=== PATIENT | female | born 1940 | race Caucasian/White ===

== ENCOUNTER 2024-12-05 11:26 | Emergency (ER) | payer MEDICARE, SELFPAY ==
[2024-12-05 11:46] VITALS: BP 128/62; PULSE 70; RESP 18; TEMP 36.4; O2SAT 98; BMI 31.0
--- NOTE | 2024-12-05 11:46 | ED.GENADULT ---
HPI - General Adult General Chief complaint: Anxiety Stated complaint: anxiety attack Time Seen by Provider: 12/05/24 12:09 Source: patient Mode of arrival: ambulatory Limitations: no limitations History of Present Illness ED Provider: CHAYO Cosby HPI narrative: This is an 83-year-old female history of anxiety presenting with significant anxiety since this morning she tells me she woke up feeling this way. She reports that yesterday she had a very emotionally filled day she went to a for her daughter's [id number], she says that they were not very close however her family was there and her son who she has not seen in about a month or 2 was there with emphysema and he looked very worn out. She is also tearful and tells me her daughter was recently diagnosed with cancer. She tells me she has 5 kids and she feels like they are all very sick, she does not want them to be sick. She is saddened by all other medical diagnoses. She denies medical complaints such as chest pain, shortness of breath, nausea, vomiting, abdominal pain, headache, vision changes, dizziness, palpitations, fevers, chills. She reports she used to take p.r.n. lorazepam however no longer taking she ran out of her script. Not suicidal not homicidal just anxious and depressed Related Data Previous Rx's ?Medication ?Instructions ?Recorded lorazepam 1 mg tablet (Ativan) 1 mg PO BID PRN anxiety 7 days #14 12/05/24 tabs Allergies Allergy/AdvReac Type Severity Reaction Status Date / Time Sulfa (Sulfonamide Allergy Intermediate RASH Verified 12/05/24 11:50 Antibiotics) (SULFA (SULFONAMIDE ANTIBIOTICS)) Pt states no known food Allergy Unknown Unknown Uncoded 12/05/24 11:50 allerg Review of Systems Review of Systems: Yes all other systems are reviewed and are negative PMFSH Past Medical History Attestation statement: The following information was validated with the patient. Source: old records reviewed and nursing notes reviewed Social History Social History Smoked in Last 30 Days: No Use of substances other than those prescribed or required for medical reasons: No Advance Directives: No Advance Directives Information Provided: No Do you have a plan to hurt others: No Plan Physical Exam ED Exam Exam: Appearance: Alert.? Oriented X3.? No acute distress.?+ anxious and tearful Head: Normocephalic, atraumatic, no step-offs or deformities Eyes: Pupils equal, round and reactive to light.? ENT: Pharynx normal.? Neck: Normal inspection.? Neck supple.? CVS: Normal heart rate and rhythm.? Pulses normal.? Respiratory: No respiratory distress.? Breath sounds normal.? Abdomen: Soft and nontender.? Skin: Skin warm and dry.? Normal skin color.? Normal skin turgor.? Extremities: No lower extremity edema.? No calf ttp. 5/5 strength to bilateral upper and lower extremities Neuro: Oriented X 3.? No motor deficit.? No sensory deficit. CN 2-12 intact Vital Signs: Vital Signs - 24 hr 12/05/24 11:46 12/05/24 12:54 12/05/24 16:18 Temperature 97.5 F 98 F Pulse Rate 70 113 H 89 Respiratory Rate 18 12 12 Blood Pressure 128/62 139/64 133/60 Pulse Oximetry 98 97 97 Oxygen Delivery Method Room Air Room Air Room Air BMI result Body Mass Index 31.0 vss Course Course Course Narrative: Medical screening exam performed. Please refer to detailed history, exam, evaluation, and management by primary provider. Reporting anxiety, forgetful. Lives at home with daughter. No trauma. JS Reevaluation(s) Reevaluation #1: Patient's CBC unremarkable. Chemistry no acute findings. UA without infection. EKG nondiagnostic for her chief complaint. Troponin added. Patient not complaining of chest pain or shortness of breath. Feeling much better after Ativan. She was seen by the care team, who recommends patient to follow up with outpatient providers which they will help set up for her. Patient feels comfortable with this plan. Time: 14:14 Medications Administered Discontinued Medications Generic Name Dose Route Start Last Admin Trade Name Freq PRN Reason Stop Dose Admin Lorazepam 1 mg 12/05/24 12:20 12/05/24 12:30 Lorazepam 1 Mg Tablet PO 12/05/24 12:21 1 mg ONCE ONE Administration Ondansetron HCl 4 mg 12/05/24 13:16 12/05/24 13:30 Ondansetron Odt 4 Mg Tab.Rapdis TRANSLINGU 12/05/24 13:17 4 mg ONCE ONE Administration Medical Decision Making Medical Decision Making [facility] Narrative: 1241 83-year-old female presents with anxiety. No medical complaints. Physical exam anxious appearing female otherwise unremarkable. History and physical exam concerning for anxiety, depression and panic attack. Not suicidal not homicidal. Low suspicion for electrolyte abnormalities. Will rule out UTI. Plan labs, urine. Will give Ativan Differential Diagnosis Differential Diagnoses: The differential diagnosis associated with the presentation includes (History and physical exam concerning for anxiety, depression and panic attack. Not suicidal not homicidal. Low suspicion for electrolyte abnormalities. Will rule out UTI.) Admission/Observation Consideration of admission/observation: Escalation of care including admission/observation considered Lab Data [facility] Lab Attestation statement: I reviewed the patient's lab results. 12/05/24 11:57 12/05/24 11:57 Labs: Lab Results 12/05/24 12/05/24 Range/Units 11:57 12:31 WBC 9.0 (4.8-10.8) X10*3/uL RBC 4.33 (4.20-5.50) X10*6/uL Hgb 13.3 (12.0-16.0) g/dl Hct 40.0 (37.0-47.0) % MCV 92.4 (80.0-98.0) fL MCH 30.7 (27.0-33.0) pg MCHC 33.3 (31.0-35.0) g/dl RDW 13.4 (11.0-16.0) % Plt Count 219 (160-400) X10*3/uL MPV 9.3 L (9.4-12.3) fL Immature Gran % (Auto) 0.2 (0.0-0.4) % Neut % (Auto) 79.6 H (45-73) % Lymph % (Auto) 11.4 L (20-40) % Sunflower % (Auto) 7.3 (2-11) % Eos % (Auto) 0.8 (0-4) % Baso % (Auto) 0.7 (0-2) % Lymph # (Auto) 1.0 L (1.2-4.9) X10*3/uL Sunflower # (Auto) 0.7 (0.1-1.2) X10*3/uL Eos # (Auto) 0.1 (0.0-0.4) X10*3/uL Baso # (Auto) 0.1 (0.0-0.2) X10*3/uL Abs Immat Gran (auto) 0.02 (0.00-0.03) X10*3/uL Absolute Neuts (auto) 7.2 (2.0-8.3) x10*3/uL Absolute Nucleated RBC 0.000 (0.0-0.012) X10*3/uL Nucleated RBC % (auto) 0.0 (0.0-0.2) /100WBC Sodium 141 (135-145) mmol/L Potassium 4.8 (3.3-5.1) mmol/L Chloride 107 (96-108) mmol/L Carbon Dioxide 27 (22-29) mmol/L Anion Gap 12 (12-20) BUN 19 H (9-16) mg/dL Creatinine 0.83 (0.5-1.4) mg/dL Estim Creat Clear Calc 50.3 Estimated GFR > 60 Random Glucose 104 (60-115) mg/dL Calcium 10.0 (8.4-10.2) mg/dL Total Bilirubin 0.4 (0.0-1.0) mg/dL AST 25 (5-31) U/L ALT 15 (0-31) U/L Alkaline Phosphatase 55 (39-117) U/L Troponin I High Sens 4.9 (<3.5-17.0) ng/L Total Protein 6.7 (6.5-8.0) g/dL Albumin 4.3 (3.5-5.0) g/dL Urine Color Yellow Urine Appearance Clear Urine pH 7.5 (5.0-9.0) Ur Specific [place] 1.015 (1.005-1.025) Urine Protein Negative (Neg-Trace) mg/dL Urine Glucose (UA) Negative (Negative) mg/dL Urine Ketones Trace (Negative) mg/dL Urine Blood Negative (Negative) Urine Nitrite Negative (Negative) Ur Leukocyte Esterase Trace H (Negative) Urine RBC 0-2 (0-2) /HPF Urine WBC 0-5 (0-5) /HPF Ur Squamous Epith Cells 3-5 (0-2) /HPF Urine Bacteria None Seen (None Seen) Hyaline Casts 0-2 (0-2) /LPF Independent Interpretation I performed an independent interpretation of an: EKG (Nondiagnostic for chief complaint) Radiology Impression Discussion of test interpretation with radiology: I have reviewed the radiologist's reading. Independent Historian Clinical information obtained from an independent historian. History obtained from or confirmed by: Other Discharge Plan Discharge Clinical Impression: Acute anxiety Patient Disposition: Home, Self-Care Instructions: Anxiety (ED) Additional Instructions: Take your medications as prescribed. If you were prescribed antibiotics today, it is important that you take your medication to their entirety, do not skip any doses, do not finish them early. Follow-up with your primary care provider this week. Return to the emergency department with new or worsening symptoms. Such as fevers, chills, chest pain, shortness of breath, nausea, vomiting, dizziness, headache, vision changes, lethargy In case of emergency call 911 A benzodiazepine has been sent to your pharmacy please take this as prescribed. Do not take more than the prescribed dose. Benzodiazepine medications can cause addiction. Please do not mix them with alcohol, benzodiazepines or opiates. Do not take them while driving or operating machinery. Do not take them with any other narcotics. Do not share them with friends or family. They can cause constipation. Take them only for severe pain. Prescriptions: New lorazepam [Ativan] 1 mg tablet 1 mg PO BID PRN (Reason: anxiety) 7 Days Qty: 14 0RF Rx Instructions: Partial fill upon required Referrals: Sean Prasad MD [Primary Care Provider, Internal Medicine] Interventions: ED Discharge Assessment Last Done: 12/05/24 16:18 Discharge Date/Time: 12/05/24 16:18 Print Language: Gambian
--- OUTSIDE RECORDS SUMMARY | 2024-12-05 12:10 | XMS_ITS | Encounter Summary ---
Author Organization [facility] Address [address] [place] [address] Care Team Providers Care Claims Support Specialist Name Role Phone Sean Prasad MD Primary Care Provider [phone] Encounter Details Date Type Department Care Team (Late st Contact Info) Description 05/29/[address] [facility] - Main Lab [address] [facility] [place] [id number] Eliana Arroyo, CHAYO [address] [facility] [address] [place] [address] Dysuria Social History Tobacco Use Types Packs/Day Years Used Date Smoking Tobacco: Former Cigarettes Passive Smoke Exposure: Past Smokeless Tobacco: Never Alcohol Use Standard Drinks/Week Comments Not Asked 0 (1 standard drink = 0.6 oz pur e alcohol) BUNNY Comments Unknown Sex and Gender Information Value Date Recorded Sex Assigned at Female 02/24/2024 6:06 AM EST Legal Sex Female 6:34 AM EST Gender Identity Female 02/24/2024 6:06 AM EST Sexual Orientation Straight 02/24/2024 6: 06 AM EST documented as of this encounter Plan of Treatment Not on file documented as of this encounter Procedures Procedure Name Priority Date/Time Associated Diagnosis Comments BACTERIAL IDENTIFICATION AND SUSCEPTIBILITY, AEROBIC Routine 05/28/2024 12:00 AM EDT Dysuria documented in this encounter Results * (ABNORMAL) Bacterial identification and susceptibility, aerobic (05/28/2024 12:00 AM EDT) Culture, Bacterial ID and Sensitivity Klebsiella pneumoniae ssp pneumoniae(A) GILDA 05/30/2024 10:[address] [facility] Comment: This is an edited result. Previous organism was Gram negative bacilli on 05/29/2024 at 1109 EDT. Other Urine specimen from urethra / Unknown 05/28/2024 05/29/2024 10:31 AM EDT Narrative Organism Antibiotic Method Susceptibility Klebsiella pneumoniae ssp pneumoniae Amoxicillin/Clavulanate GILDA 8 ug/ml: Susceptible Klebsiella pneumoniae ssp pneumoniae Ampicillin/Sulbactam GILDA 4 ug/ml: Susceptible Klebsiella pneumoniae ssp pneumoniae Piperacillin/Tazobactam GILDA <=4 ug/ml: Susceptible Klebsiella pneumoniae ssp pneumoniae Cefazolin (Urine) GILDA 4 ug/ml: Susceptible Klebsiella pneumoniae ssp pneumoniae Cefoxitin GILDA <=4 ug/ml: Susceptible Klebsiella pneumoniae ssp pneumoniae Ceftazidime GILDA <=0.5 ug/ml: Susceptible Klebsiella pneumoniae ssp pneumoniae Ceftriaxone GILDA <=0.25 ug/ml: Susceptible Klebsiella pneumoniae ssp pneumoniae Cefepime GILDA <=0.12 ug/ml: Susceptible Klebsiella pneumoniae ssp pneumoniae Meropenem GILDA <=0.25 ug/ml: Susceptible Klebsiella pneumoniae ssp pneumoniae Amikacin GILDA <=1 ug/ml: Susceptible Klebsiella pneumoniae ssp pneumoniae Gentamicin GILDA <=1 ug/ml: Susceptible Klebsiella pneumoniae ssp pneumoniae Ciprofloxacin GILDA <=0.06 ug/ml: Susceptible Klebsiella pneumoniae ssp pneumoniae Levofloxacin GILDA 1 ug/ml: Intermediate Klebsiella pneumoniae ssp pneumoniae Nitrofurantoin GILDA 256 ug/ml: Resistant Klebsiella pneumoniae ssp pneumoniae Trimethoprim/Sulfamethoxazo le GILDA <=20 ug/ml: Susceptible us Eliana [facility] MICROBIOLOGY - GENERAL ORDER WINDY Final Result [facility] [address] [place] [address], documented in this encounter Visit Diagnoses Diagnosis Dysuria documented in this encounter Care Teams Claims Support Specialist Relationship Specialty Start Date End Date Sean Prasad MD [address] PCP - General Internal Medicine 02/24/24 documented as of this encounter
--- OUTSIDE RECORDS SUMMARY | 2024-12-05 12:10 | XMS_ITS | Clinical Summary ---
Author Organization [facility] [place] [address] Phone Care Team Providers Care Chain Builder Loom Control Name Role Phone Sean Prasad MD Primary Care Provider [phone] Allergies Active Allergy Reactions Criticality Noted Date Comments Amoxicillin-Pot Clavulanate Nausea And Vomiting Low 02/17/2024 Sulfa (Sulfonamide Antibiotics) Rash High 02/01 Medications calcium carbonate-vitam in D3 1,000 mg-20 mcg (800 unit) tablet Take 1,000 mg by mouth 1 (one) time each day. 12/27/2021 Active LORazepam (ATIVAN) 0.5 mg tablet Take 1 tablet (0.5 mg total) by mouth every 6 (six) hours if needed. Max Daily Amount: 2 mg 09/07/2022 Active losartan (COZAAR) 100 mg tablet Take 1 tablet (100 mg total) by mouth. 12/27/2021 Active polyethylene glycol 3350 (MIRALAX ORAL) Take 17 g by mouth. 12/28/2021 Active simvastatin (ZOCOR) 20 mg tablet Take 1 tablet (20 mg total) by mouth. 12/27/2021 Active amLODIPine (NORVASC) 5 mg tablet Take by mouth 1 (one) time each day. Active nitrofurantoin (MACRODANTIN) 50 mg capsule Take 1 capsule (50 mg total) by mouth at bedtime. Active saccharomyces boulardii (FLORASTOR) 250 mg capsule Take 1 capsule (250 mg total) by mouth 1 (one) time each day. Active vit C/E/Zn/coppr/nabor tein/zeaxan (PRESERVISION AREDS-2 ORAL) Take 1 tablet by mouth 2 (two) times a day. Active PARoxetine (PAXIL) 10 mg tablet Take 1 tablet (10 mg total) by mouth 1 (one) time each day in the morning. Active Active Problems Problem Noted Date Diagnosed Date TIA (transient ischemic attack) 02/24/2024 HTN (hypertension) 02/23/2024 Surgical History Surgery Date Site/Laterality Comments KNEE ARTHROPLASTY Right CHOLECYSTECTOMY BLADDER SUSPENSION CARPAL TUNNEL RELEASE Right Medical History Medical History Date Comments Hypertension Hyperlipidemia HL (hearing loss) Dental disease PARTIAL UPPER Arthritis Joint pain Dizziness Stroke ([facility] V24, [facility] V28) TIA Social History Tobacco Use Types Packs/Day Years Used Date Smoking Tobacco: Former Cigarettes Passive Smoke Exposure: Past Smokeless Tobacco: Never Tobacco Cessation:Counseling Given: Not Answered Alcohol Use Standard Drinks/Week Comments Not Asked 0 (1 standard drink = 0.6 oz pur e alcohol) RARLEY Comments Unknown Sex and Gender Information Value Date Recorded Sex Assigned at Female 02/24/2024 6:06 AM EST Legal Sex Female 6:34 AM EST Gender Identity Female 02/24/2024 6:06 AM EST Sexual Orientation Straight 02/24/2024 6: 06 AM EST Obstetrics History Last Filed Vital Signs Vital Sign Reading Time Taken Comments Blood Pressure 108/65 02/24/2024 9:11 AM EST Pulse 77 02/24/2024 9:11 AM EST Temperature 36.4 C (97.5 F) 02/24/2024 9:11 AM EST Respiratory Rate 15 02/24/2024 9:02 AM EST Oxygen Saturation 96% 02/24/2024 9:11 AM EST Inhaled Oxygen Concentration - - Weight 79.4 kg (175 lb) 02/17/2024 11:00 AM EST Height 157.5 cm (5' 2 ) 02/17/2024 11:00 AM EST Body Mass Index 32.01 02/17/2024 11:00 AM EST Plan of Treatment Health Maintenance Due Date Last Done Comments DTaP,Tdap,and Td Vaccines (1 - Tdap) 12/24/1959 Pneumococcal Vaccine: 50+ Ye ars (1 of 1 - PCV) 12/24/1989 Zoster Vaccines (2 of 3) 12/16/2008 10/21/2008 RSV Immunization Adult Patie nts (1 - 1-dose 75+ series) 12/24/2014 Cholesterol Screening (Lipid Panel) 02/04/2022 Medicare Annual Wellness Visit 02/04/2022 Osteoporosis Screening (Bone Density Screening) 02/04/2022 Social Influencers of Health Screening 02/04/2022 Hypertension/CHF/CAD Annual BMP Blood Test 02/23/2024 Depression Screening 03/04/2024 COVID-19 Vaccine ( - 2023-2 5 season) 2024 Influenza Vaccine (#1) 2024 Falls Risk Assessment 02/23/2025 02/24/2024 HIB Vaccines Aged Out No longer eligi ble based on patient's age to complete this topic HPV Vaccines Aged Out No longer eligi ble based on patient's age to complete this topic Hepatitis A Vaccines Aged Out No long er eligible based on patient's age to complete this topic Hepatitis B Vaccines Aged Out No long er eligible based on patient's age to complete this topic IPV Vaccines Aged Out No longer eligi ble based on patient's age to complete this topic MMR Vaccines Aged Out No longer eligi ble based on patient's age to complete this topic Meningococcal ACWY Vaccine Aged Out N o longer eligible based on patient's age to complete this topic Meningococcal B Vaccine Aged Out No l onger eligible based on patient's age to complete this topic RSV Immunization Patients Un oliver 20 months Aged Out No longer eligible b ased on patient's age to complete this topic Varicella Vaccines Aged Out No longer eligible based on patient's age to complete this topic Medical Devices Implanted Type Area Brick Setter Device Identifier Shelf Expiration Date Model / Serial / Lot Joints Knee Joints Knee Right: Knee [employer] Tined Lead Kit Implanted:Qty: 1 on 02/24/2024 by Saskia Carmen MD at [facility] N/A: Sacrum [employer] 12/22/2026 1201 / [id number] / NA Axonics Neurostimulator F-15 Implanted:Qty: 1 on 02/24/2024 by Saskia Carmen MD at [facility] N/A: Sacrum [employer] 05/13/2024 [id number] / [id number] / NA Insurance MEDICARE [facility] [address] [place] [address] Care Teams Chain Builder Loom Control Relationship Specialty Start Date End Date Sean Prasad MD [address] [facility] [address] [place], [place] PCP - General Internal Medicine 02/24/24
[2024-12-05 12:13] LABS: MANUAL DIFF FLAG NO
--- NOTE | 2024-12-05 12:17 | PC.NURSE ---
Patient reporting went to a yesterday and saw her son who is sick with narcolepsy and emphysema. States this made her very anxious- daughter at bedside confirms. Patient state used to take Ativan but has not needed to take it for over a year. Took paxil 10 mg this am but states still feels anxious. Denies SI/HI, denies recent illness
[2024-12-05 12:21] LABS: Hematocrit 40.0 % (37.0-47.0); Hemoglobin 13.3 g/dl (12.0-16.0); Imm Gran Abs Auto 0.02 X10*3/uL (0.00-0.03); Imm Gran Pct Auto 0.2 % (0.0-0.4); Lymphocytes Absolute Auto 1.0 X10*3/uL (1.2-4.9); Mean Corpuscular HGB Conc 33.3 g/dl (31.0-35.0); Mean Corpuscular Hemoglobin 30.7 pg (27.0-33.0); Mean Corpuscular Volume 92.4 fL (80.0-98.0); NRBC Abs Auto 0.000 X10*3/uL (0.0-0.012); NRBC Pct Auto 0.0 /100WBC (0.0-0.2); Platelet Count 219 X10*3/uL (160-400); Red Blood Count 4.33 X10*6/uL (4.20-5.50); White Blood Count 9.0 X10*3/uL (4.8-10.8)
[2024-12-05 12:27] LABS: Alanine Aminotransferase 15 U/L (0-31); Albumin Level 4.3 g/dL (3.5-5.0); Alkaline Phosphatase 55 U/L (39-117); Anion Gap 12 (12-20); Aspartate Amino Transferase 25 U/L (5-31); Blood Urea Nitrogen 19 mg/dL (9-16); Calcium 10.0 mg/dL (8.4-10.2); Carbon Dioxide 27 mmol/L (22-29); Chloride 107 mmol/L (96-108); Creatinine Clr Calc Pharmacy 50.3; Estimated Glomerular Filt Rate > 60; Potassium 4.8 mmol/L (3.3-5.1); Sodium 141 mmol/L (135-145); Total Protein 6.7 g/dL (6.5-8.0)
--- NOTE | 2024-12-05 12:42 | ECG_ITS ---
Test Reason : SOB Blood Pressure : */* mmHG Vent. Rate : 65 BPM Atrial Rate : 65 BPM P-R Int : 168 ms QRS Dur : 80 ms QT Int : 440 ms P-R-T Axes : 18 -24 15 degrees QTcB Int : 457 ms Normal sinus rhythm Left axis deviation Poor R progression anterior leads, could be from body habitus Nonspecific ST and T wave abnormality Abnormal ECG No previous ECGs available Referred By: Jewell Cosby Electronically Signed By: VIRGINIA MIKE
[2024-12-05 12:44] LABS: Appearance Urine Clear; Glucose Urine UA Negative (Negative); PH 7.5 (5.0-9.0); Specific Gravity - Urine 1.015 (1.005-1.025); UMIC TRIGGER UA YES
[2024-12-05 12:54] VITALS: BP 139/64; PULSE 113; RESP 12; O2SAT 97
--- NOTE | 2024-12-05 13:12 | PC.NURSE ---
Pt vomited small amount of bile.
--- NOTE | 2024-12-05 13:15 | PC.NURSE ---
Pt reports the sudden nausea and vomiting has been going on for a while. Happens every 6 weeks or so. PCP has not given her a good explaination.
[2024-12-05 15:08] LABS: Troponin-I High Sensitivity 4.9 ng/L (<3.5-17.0)
[2024-12-05 16:18] VITALS: BP 133/60; PULSE 89; RESP 12; TEMP 36.6; O2SAT 97
== END 2024-12-05 16:18 | disposition home or self-care (01) ==
PROVIDERS: Physician Assistant; Emergency Provider Emergency Medicine; PCP Internal Medicine
DX: F41.1 Generalized anxiety disorder (principal); F43.20 Adjustment disorder, unspecified; F33.1 Major depressive disorder, recurrent, moderate; R06.02 Shortness of breath; Z79.899 Other long term (current) drug therapy
CPT/HCPCS: 36415; 80053; 81001; 84484; 85025; 93005; 99284; S9485

== ENCOUNTER → 2024-12-05 12:42 | Outpatient (BNV) | payer MEDICARE, SELFPAY | PROVIDERS: Emergency Provider Emergency Medicine; PCP Internal Medicine; Visit Provider Internal Medicine | DX: R94.31 Abnormal electrocardiogram [ECG] [EKG] (principal); R06.02 Shortness of breath | CPT/HCPCS: 93010 ==